=== PATIENT | female | born 1995 | race Asian ===

== ENCOUNTER 2022-06-28 17:20 | Emergency (ER) | payer OTHER ==
[2022-06-28 17:58] LABS: BASOPHILS # (AUTO) 0.1 10^3/uL (0.0-0.1); BASOPHILS % (AUTO) 0.9 %; EOSINOPHILS % (AUTO) 0.6 %; HCT - HEMATOCRIT 37.2 % (37.0-47.0); HGB - HEMOGLOBIN 12.2 g/dL (12.0-16.0); LYMPHOCYTES # (AUTO) 1.5 10^3/uL (1.5-3.5); LYMPHOCYTES % (AUTO) 26.9 %; MEAN CORPUSCULAR HEMOGLOBIN 29.8 pg (27.0-31.0); MEAN CORPUSCULAR HGB CONC 32.8 g/dL (32.0-36.0); MEAN PLATELET VOLUME 9.9 fL (7.9-10.8); MONOCYTES # (AUTO) 0.3 10^3/uL (0.0-1.0); MONOCYTES % (AUTO) 5.9 %; NEUTROPHILS # (AUTO) 3.5 10^3/uL (1.5-6.6); NEUTROPHILS % (AUTO) 65.5 %; PLT - PLATELET COUNT 241 10^3/uL (130-450); RED BLOOD COUNT 4.09 10^6/uL (4.20-5.40); RED CELL DISTRIBUTION WIDTH 12.1 % (12.0-15.0); WHITE BLOOD COUNT 5.4 x10^3/uL (4.8-10.8)
--- NOTE | 2022-06-28 18:07 | ED Physician Documentation ---
History of Present Illness - Stated complaint Stated Complaint: CHEST PX - Chief complaint Chief Complaint: General - Additonal information Additional information: 27-year-old female was brought to the emergency department with her mom for e valuation of chest pain. She reports that on the left lateral side she has been having some chest pain. Then she began noticing tingling in both her arms and fingers. No cough no feeding fevers. Pain is not exertional. Is not pleuritic. Her mom is worried that she could be having a heart attack. Patient does not smoke. No history of hypertension or diabetes. No family history of sudden or early coronary artery disease or . Patient has not recently traveled. Not on any hormones or control. No unilateral leg swelling. No history of DVT or cancer. No recent surgery or imm obilizations. No recent falls or trauma. She appears remarkably well though anxious Review of Systems Constitutional: denies: Fever Nose: reports: Reviewed and negative Throat: reports: Reviewed and negative Cardiac: reports: Chest pain / pressure. 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 : None HEENT: None Psych: None Musculoskeletal: None Derm: None - Past Surgical History Past Surgical History: No - Present Medications Home Medications: Ambulatory Orders Medication Instructions Recorded Confirmed No Known Home Medications 06/28/22 06/28/22 - Allergies Allergies/Adverse Reactions: Allergies Allergy/AdvReac Type Severity Reaction Status Date / Time No Known Drug Allergies Allergy Verified 06/28/22 17:32 - Social History Does the pt smoke?: No Smoking Status: Never smoker Does the pt drink ETOH?: No Does the pt have substance abuse?: No - Immunizations Immunizations are current?: No - POLST Patient has POLST: No PD ED PE NORMAL - General General: Alert and oriented X 3, No acute distress - HEENT HEENT: PERRL - Neck Neck: Supple, no meningeal sign, No adenopathy - Cardiac Cardiac: RRR, No murmur - Respiratory Respiratory: No respiratory distress, Clear bilaterally - Abdomen Abdomen: Normal bowel sounds, Soft - Derm Derm: Normal color, Warm and dry, No rash - Extremities Extremities: No deformity - Neuro Neuro: Alert and oriented X 3, religious educator 2-12 intact Eye Opening: Spontaneous Motor: Obeys Commands Verbal: Oriented GCS Score: 15 Results - Vitals Vitals: Vital Signs - 24 hr 06/28/22 17:22 Temperature 36.9 C Heart Rate 85 Respiratory 16 Rate Blood Pressure 142/82 H O2 Saturation 99 Oxygen O2 Source Room air - EKG (time done) 1726 EKG releavant findings:: EKG personally interpreted by author of this note. Relevant findings are: Rate: Rate (enter#) (85) Rhythm: NSR [place]: Normal Intervals: Normal [place] QRS: Normal Other comments: Other comments (rsr' v1v2) Compare to prior EKG: Old EKG unavailable Computer interpretation: Agree with computer - Labs Labs: Laboratory Tests 06/28/22 06/28/22 06/28/22 17:50 17:50 17:50 WBC 5.4 RBC 4.09 L Hgb 12.2 Hct 37.2 MCV 91.0 MCH 29.8 MCHC 32.8 RDW 12.1 Plt Count 241 MPV 9.9 Neut # (Auto) 3.5 Lymph # (Auto) 1.5 [place] # (Auto) 0.3 Eos # (Auto) 0.0 Baso # (Auto) 0.1 Absolute Nucleated RBC 0.00 Nucleated RBC % 0.0 Sodium 139 Potassium 3.3 L Chloride 104 Carbon Dioxide 25 Anion Gap 10.0 BUN 8 Creatinine 0.6 Estimated GFR (MDRD) 119 Glucose 103 H Calcium 8.9 Total Bilirubin 0.9 AST 18 ALT 11 Alkaline Phosphatase 34 L Troponin I High Sens < 2.3 L Total Protein 7.2 Albumin 4.2 Globulin 3.0 Albumin/Globulin Ratio 1.4 Lipase 39 - Rads (name of study) cxr Relevant Findings:: EMP independent interpretation of test (No acute cardi opulmonary process) PD Medical Decision Making - ED course Complexity details: reviewed results, considered differential, d/w patient, d/w family ED course: Very well-appearing 27-year-old female presents emergency department for evaluation of left-sided chest pain that she began noticing today. She denies that it hurt with a deep breath and it was not exertional. No cough or fevers. Shortly after developing the chest pain she began to feel some tingling in both her extremities. She also states that several days ago she strained her neck and the neck has been bothering her though she is taken nothing for it. On presentation the emergency department she appears rather well and in no distress. Her vital signs are without worrisome abnormality or fever. A chest x-ray was completed and showed no signs of pneumonia, pneumothorax, pleural effusion or cardiomegaly. An EKG is interpreted by myself was sinus without any ischemic findings. No findings suggest pericarditis. I did obtain a CBC electrolytes and troponin which were all essentially negative. By PERC criteria patient is considered low risk for PE. Therefore deferred a D- dimer or other study for this. I discussed with the patient and her mom that she has no risk factors for. Often the chest pain that is accompanied by ting ling can be a sign of anxiety. I encouraged them to discuss this ED visit with her primary providers. She is discharged home in stable condition with usual emergent return precautions for worsening symptoms discussed Departure - Departure Disposition: 01 Home, Self Care Clinical Impression: Chest pain Qualifiers: Chest pain type: unspecified Qualified Code(s): R07.9 - Chest pain, unspecified Neck muscle strain Qualifiers: Encounter type: initial encounter Qualified Code(s): S16.1XXA - Strain of muscle, fascia and tendon at neck level, initial encounter Condition: Stable Record reviewed to determine appropriate education?: Yes Instructions: ED Chest Pain Atypical Unkn Cause Comments: Malgorzata, You came to the emergency department today because you began having some pain on the left side of your chest. You also noticed tingling in both your arms as well as some pain in your neck when moving it. As discussed at the bedside your chest x-ray was entirely normal without showing any findings of a punctured lung, pneumonia, heart enlargement or fluid overlying the lungs. Your labs including a CBC and electrolytes were also without any worrisome abnormalities. Your EKG was normal for age. As discussed at the bedside I say with confidence that you are not having a heart attack. Your history and exam is not consistent with a blood clot or pulmonary embolism. Often when people have pain in the chest and also report tingling in their extremities this can be seen during anxiety. In general I want you to stay well-hydrated and get plenty of rest. You can take ibuprofen or Tylenol [id number] for your neck strain. I would except Your symptoms to be improving over the next several days. Return to the ER if you develop any fevers, have sudden difficulty breathing or any fainting episodes
[2022-06-28 18:12] LABS: ALBUMIN 4.2 g/dL (3.2-5.5); ALBUMIN/GLOBULIN RATIO 1.4 (1.0-2.2); BILIRUBIN,TOTAL 0.9 mg/dL (0.2-1.0); CALCIUM 8.9 mg/dL (8.5-10.3); CREATININE 0.6 mg/dL (0.4-1.0); POTASSIUM 3.3 mmol/L (3.5-5.0); TOTAL PROTEIN 7.2 g/dL (6.7-8.2)
--- NOTE | 2022-06-28 18:12 | XRAY Report ---
PROCEDURE: Chest 1 View X-Ray INDICATIONS: chest pain TECHNIQUE: One view of the chest was acquired. COMPARISON: None. FINDINGS: Surgical changes and devices: None. Lungs and pleura: No pleural effusions or pneumothorax. Lungs are clear. Mediastinum: Mediastinal contours appear normal. Heart size is normal. Bones and chest wall: No suspicious bony lesions. Overlying soft tissues appear unremarkable. IMPRESSION: No acute cardiopulmonary process. Reviewed by: Cee Woodard MD on 06/28/2022 6:11 PM PDT Approved by: Cee Woodard MD on 06/28/2022 6:11 PM PDT Station ID: [id number]
[2022-06-28 18:41] VITALS: BP 110/77
== END 2022-06-28 18:50 | disposition home or self-care (01) ==
LOC: ED 17:20
DX: R07.9 Chest pain, unspecified (principal); S16.1XXA Strain of muscle, fascia and tendon at neck level, initial encounter; X58.XXXA Exposure to other specified factors, initial encounter
CPT/HCPCS: 36415; 80053; 83690; 84484; 85025; 93005; 99283; 99284

== ENCOUNTER 2022-10-10 21:24 | Observation (INO) | payer OTHER ==
[2022-10-10 22:26] LABS: BASOPHILS % (AUTO) 0.5 %; EOSINOPHILS # (AUTO) 0.1 10^3/uL (0.0-0.7); EOSINOPHILS % (AUTO) 0.6 %; HCT - HEMATOCRIT 34.8 % (37.0-47.0); HGB - HEMOGLOBIN 11.5 g/dL (12.0-16.0); LYMPHOCYTES # (AUTO) 1.8 10^3/uL (1.5-3.5); LYMPHOCYTES % (AUTO) 23.4 %; MEAN CORPUSCULAR HEMOGLOBIN 29.8 pg (27.0-31.0); MEAN CORPUSCULAR VOLUME 90.2 fL (81.0-99.0); MEAN PLATELET VOLUME 9.7 fL (7.9-10.8); MONOCYTES # (AUTO) 0.4 10^3/uL (0.0-1.0); MONOCYTES % (AUTO) 5.3 %; NEUTROPHILS # (AUTO) 5.4 10^3/uL (1.5-6.6); NEUTROPHILS % (AUTO) 69.9 %; PLT - PLATELET COUNT 284 10^3/uL (130-450); RED BLOOD COUNT 3.86 10^6/uL (4.20-5.40); WHITE BLOOD COUNT 7.7 x10^3/uL (4.8-10.8)
[2022-10-10 22:37] LABS: ALBUMIN 4.6 g/dL (3.2-5.5); ALBUMIN/GLOBULIN RATIO 1.9 (1.0-2.2); BILIRUBIN,TOTAL 1.1 mg/dL (0.2-1.0); CALCIUM 8.7 mg/dL (8.5-10.3); CREATININE 0.6 mg/dL (0.4-1.0); POTASSIUM 3.2 mmol/L (3.5-5.0)
--- NOTE | 2022-10-10 23:19 | ED Physician Documentation ---
PD HPI FEMALE - Stated complaint Stated Complaint: - Chief complaint Chief Complaint: Abd Pain - History obtained from History obtained from: Patient - Additional information Additional information: HPI from patient. Patient c/o vaginal bleeding, suprapubic cramping since earlier today. LMP 09/06/22. Took home tests with (+) result (two days ago and again yesterday). This is her first . Denies fever, chest pain, shortness of breath. Review of Systems Constitutional: reports: Reviewed and negative Cardiac: reports: Reviewed and negative Respiratory: reports: Reviewed and negative GI: denies: Abdominal Pain (pelvic pain, but not abdominal pain per se), Nausea, Vomiting : reports: LMP (09/06/22), Now EGA. 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 : None HEENT: None Psych: None Musculoskeletal: None Derm: None - Past Surgical History Past Surgical History: No - Present Medications Home Medications: Ambulatory Orders Medication Instructions Recorded Confirmed No Known Home Medications 06/28/22 06/28/22 - Allergies Allergies/Adverse Reactions: Allergies Allergy/AdvReac Type Severity Reaction Status Date / Time No Known Drug Allergies Allergy Verified 10/10/22 21:29 - Social History Does the pt smoke?: No Smoking Status: Never smoker Does the pt drink ETOH?: No Does the pt have substance abuse?: No - Immunizations Immunizations are current?: No - POLST Patient has POLST: No PD ED PE NORMAL - Vitals Vital signs reviewed: Yes - General General: Alert and oriented X 3, No acute distress, Well developed/nourished - Cardiac Cardiac: RRR, No murmur - Respiratory Respiratory: No respiratory distress, Clear bilaterally - Abdomen Abdomen: Normal bowel sounds, Soft, Non tender, Non distended - Back Back: No CVA TTP - Derm Derm: Normal color Results - Vitals Vitals: Vital Signs - 24 hr 10/10/22 10/10/22 10/11/22 21:29 23:00 01:00 Temperature 36.5 C Heart Rate 100 85 89 Respiratory 16 16 16 Rate Blood Pressure 140/88 H 119/85 H 111/69 O2 Saturation 98 100 100 Oxygen O2 Source Room air - Labs Labs: Laboratory Tests 10/10/22 10/10/22 10/10/22 22:22 22:22 22:22 WBC 7.7 RBC 3.86 L Hgb 11.5 L Hct 34.8 L MCV 90.2 MCH 29.8 MCHC 33.0 RDW 12.0 Plt Count 284 MPV 9.7 Neut # (Auto) 5.4 Lymph # (Auto) 1.8 [place] # (Auto) 0.4 Eos # (Auto) 0.1 Baso # (Auto) 0.0 Absolute Nucleated RBC 0.00 Nucleated RBC % 0.0 Sodium 134 L Potassium 3.2 L Chloride 103 Carbon Dioxide 22 Anion Gap 9.0 BUN 9 Creatinine 0.6 Estimated GFR (MDRD) 119 Glucose 107 H Calcium 8.7 Total Bilirubin 1.1 H AST 17 ALT 11 Alkaline Phosphatase 30 L Total Protein 7.0 Albumin 4.6 Globulin 2.4 Albumin/Globulin Ratio 1.9 Lipase 38 Beta HCG, Quant 606.7 Urine Color Urine Clarity Urine pH Ur Specific [place] Urine Protein Urine Glucose (UA) Urine Ketones Urine Occult Blood Urine Nitrite Urine Bilirubin Urine Urobilinogen Ur Leukocyte Esterase Urine RBC Urine WBC Ur Squamous Epith Cells Urine Bacteria Urine Mucus Ur Microscopic Review Urine Culture Comments 10/11/22 00:01 WBC RBC Hgb Hct MCV MCH MCHC RDW Plt Count MPV Neut # (Auto) Lymph # (Auto) [place] # (Auto) Eos # (Auto) Baso # (Auto) Absolute Nucleated RBC Nucleated RBC % Sodium Potassium Chloride Carbon Dioxide Anion Gap BUN Creatinine Estimated GFR (MDRD) Glucose Calcium Total Bilirubin AST ALT Alkaline Phosphatase Total Protein Albumin Globulin Albumin/Globulin Ratio Lipase Beta HCG, Quant Urine Color YELLOW Urine Clarity CLEAR Urine pH 6.0 Ur Specific [place] 1.015 Urine Protein NEGATIVE Urine Glucose (UA) NEGATIVE Urine Ketones 40 H Urine Occult Blood LARGE H Urine Nitrite NEGATIVE Urine Bilirubin NEGATIVE Urine Urobilinogen 0.2 (NORMAL) Ur Leukocyte Esterase NEGATIVE Urine RBC TNTC H Urine WBC 0-3 Ur Squamous Epith Cells FEW Squamous Urine Bacteria Few Urine Mucus Few Strands Ur Microscopic Review INDICATED Urine Culture Comments NOT INDICATED - Rads (name of study) pelvic US Relevant Findings:: Prelim report reviewed, See rad report PD Medical Decision Making - ED course Complexity details: reviewed results, re-evaluated patient, considered differential, d/w patient ED course: No concerning findings on CBC (mildly low hgb, 11.5), minimal hyponatremia (134), mild hypokalemia (3.2). HCQ quantitative is 606. Pelvic US findings are concerning, with trace, complex fluid within endometrium, and large amount of complex free fluid in pelvis. Radiologist's interpretation is " unknown location" with ectopic within differential diagnosis. Patient is in NAD on initial evaluation as well as on reevaluation. Results d/w patient including the US and lack of clarity as to what the US findings represent. D/W Dr. Callahan (on-call magnetic doctor), she will come to ED to evaluate patient and look at the US images. She subsequently admits patient to [facility] for observation. Departure - Departure Disposition: ED Place in Observation Clinical Impression: Vaginal bleeding in Condition: Stable Discharge Date/Time: 10/11/22 03:50
[2022-10-11 00:12] LABS: BILIRUBIN,URINE NEGATIVE (NEGATIVE); GLUCOSE, URINE (UA) NEGATIVE (NEGATIVE); KETONES,URINE (UA) 40 mg/dL (NEGATIVE); LEUKOCYTE ESTERASE, URINE NEGATIVE (NEGATIVE); NITRITE,URINE NEGATIVE (NEGATIVE); OCCULT BLOOD,URINE LARGE (NEGATIVE); PROTEIN,URINE NEGATIVE (NEGATIVE); UROBILINOGEN,URINE 0.2 (NORMAL) E.U./dL (NORMAL)
[2022-10-11 00:15] LABS: CLARITY,URINE CLEAR (CLEAR)
[2022-10-11 00:27] LABS: BACTERIA,URINE Few /HPF (None Seen); MUCUS,URINE Few Strands; RBC,URINE TNTC /HPF (0-5); SQUAMOUS EPITHELIAL CELL,UR FEW Squamous (<= Few); WBC,URINE 0-3 /HPF (0-5)
--- NOTE | 2022-10-11 00:51 | Ultrasound Report ---
PROCEDURE: OB First Trimester INDICATIONS: vaginal bleeding first trimester OUTSIDE/PRIOR DATING DATA: Last menstrual period (LMP): 09/06/2022. LMP-based estimated date of delivery (BRITNEY): 06/12/2022. First dating scan (date and location): Today's exam. Estimated date of delivery (BRITNEY) from first dating scan: Not applicable. TECHNIQUE: Real-time scanning was performed of the fetus and maternal pelvic organs, with image documentation. COMPARISON: None FINDINGS: No intrauterine gestational sac present. The uterus contains complex free fluid, possibly representing a gestational sac. This measures 1.8 x 0.8 x 1.8 cm. Maternal organs: Ovaries appear within normal limits. No adnexal mass. There is a large amount of mi ldly complex free fluid in the pelvis. IMPRESSION: of unknown location, with differential including early gestational , noah lure, ectopic . Trace complex free fluid in the endometrium, which may represent a pseudogestational sac. Additionall y, there is a large amount of free fluid in the pelvis, with some degree of complexity. These two fin dings are commonly seen with ectopic pregnancies. Above discussed with Aydin Gan MD at the time of dictation. Reviewed by: Rigoberto Corrigan on 10/11/2022 12:49 AM PDT Approved by: Rigoberto Corrigan on 10/11/2022 12:49 AM PDT Station ID: [id number]
[2022-10-11] MEDS ORDERED: ONDANSETRON ODT 4 MG TABLET TL PRN (03:09)
--- NOTE | 2022-10-11 03:20 | HISTORY & PHYSICAL EXAMINATION ---
Chief Complaint - Chief Complaint Chief Complaint: Vaginal bleeding and cramping History of Present Illness - History Obtained From History obtained from: Patient - History of Present Illness HPI Comment/Other: Patient is a 27-year-old G1, P0 with an LMP of 09/06/2022 who presents with light vaginal bleeding and cramping that started yesterday. Patient had a recent positive test at home. Patient reported some chills at home, but no fever. She otherwise feels well and has no complaints. 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 - Substance History Use: Uses substance without health or social issues: NONE (OB: First TACKING STITCH REMOVER: Denies history of sexually transmitted infections Surgical history: None) - POLST Patient has POLST: No Meds/Allgy - Home Medications Home Medications: Ambulatory Orders Medication Instructions Recorded Confirmed No Known Home Medications 06/28/22 06/28/22 - Allergies Allergies/Adverse Reactions: Allergies Allergy/AdvReac Type Severity Reaction Status Date / Time No Known Drug Allergies Allergy Verified 10/10/22 21:29 Review of Systems - Cardiovascular Cariovascular: denies: Chest pain - Respiratory Respiratory: denies: SOB at rest - Genitourinary Genitourinary: reports: Other (small amount of vaginal bleeding, has not been soaking through pads. Mild cramping) - All Other Systems All Other Systems: reports: Reviewed and negative Exam - Vital Signs Reviewed Vital Signs: Yes Vital Signs: Vital Signs x48h Temp Pulse Resp BP Pulse Ox 10/11/22 01:00 89 16 111/69 100 10/10/22 23:00 85 16 119/85 H 100 10/10/22 21:29 97.7 F 100 16 140/88 H 98 - Physical Exam General Appearance: positive: No acute distress Abdomen: positive: Non-tender. negative: Guarding, Rebound Comments/Other: pelvic exam: Small amount of blood in vaginal vault with small amount of bleeding from cervical os. Patient is nontender with bimanual exam. Conclusion/Plan - Problem List (1) Vaginal bleeding in Conclusion/Plan: 1. of unknown location -Quantitative hC -Ultrasound is significant for "trace complex free fluid in the endometrium. "Additionally on ultrasound there is a large amount of free fluid in the pelvis. Patient's examination is benign, however given amount of free fluid in pelvis will admit for serial abdominal pelvic examination and repeat quantitative hCG. Discussed with patient of unknown location at this time with possibility of ectopic versus early miscarriage With recommendation of expected management at this time.Risk, benefits, and alternatives discussed with patient, ultrasound findings reviewed with patient and significant other, and all questions answered. - Lab Results Fish Bones: 10/10/22 22:22 10/10/22 22:22
[2022-10-11] MEDS: ACETAMINOPHEN 500 MG TABLET PO SCH ×2 (03:55→11:16)
[2022-10-11 11:01] VITALS: O2SAT 99
[2022-10-11 12:01] LABS: BASOPHILS % (AUTO) 0.6 %; EOSINOPHILS % (AUTO) 0.4 %; HCT - HEMATOCRIT 31.5 % (37.0-47.0); HGB - HEMOGLOBIN 10.6 g/dL (12.0-16.0); LYMPHOCYTES # (AUTO) 1.6 10^3/uL (1.5-3.5); LYMPHOCYTES % (AUTO) 30.9 %; MEAN CORPUSCULAR HGB CONC 33.7 g/dL (32.0-36.0); MEAN CORPUSCULAR VOLUME 89.2 fL (81.0-99.0); MEAN PLATELET VOLUME 9.7 fL (7.9-10.8); MONOCYTES # (AUTO) 0.4 10^3/uL (0.0-1.0); MONOCYTES % (AUTO) 8.4 %; NEUTROPHILS # (AUTO) 3.1 10^3/uL (1.5-6.6); NEUTROPHILS % (AUTO) 59.5 %; PLT - PLATELET COUNT 257 10^3/uL (130-450); RED BLOOD COUNT 3.53 10^6/uL (4.20-5.40); RED CELL DISTRIBUTION WIDTH 11.9 % (12.0-15.0); WHITE BLOOD COUNT 5.2 x10^3/uL (4.8-10.8)
[2022-10-11 12:25] VITALS: BP 100/56
--- NOTE | 2022-10-11 13:37 | DISCHARGE SUMMARY ---
Discharge Summary Admit Date: 10/10/22 Discharge Date: 10/11/22 Discharging Provider: Zander Shanks MD Code Status: Attempt Resuscitation Condition at Discharge: Stable Discharge Disposition: 01 Home, Self Care - DIAGNOSES Admission Diagnoses: Vaginal bleeding Suprapubic pain Discharge Diagnoses with Status of Each Condition: Vaginal bleeding: Improved Suprapubic pain: Stable - HPI History of Present Illness: No acute events overnight. Able to ambulate to bathroom without dizziness. Some left lower quadrant cramping, but pain 3/10. Had been declining Tylenol this morning, but did have a dose recently. Minimal vaginal bleeding. Physical exam: Constitutional: alert, oriented, no acute distress Cardiovascular: Regular rate and rhythm. No murmurs, rubs, gallops. Respiratory: No respiratory distress. Clear to auscultation bilaterally. Abdomen: Soft, pelvic pain not producible on exam Psych: affect and mood appropriate, normal interaction, good eye contact. - HOSPITAL COURSE Hospital Course: Patient is a 27-year-old G1, P0 at approximately 6 weeks gestation by LMP who presented with vaginal bleeding and suprapubic pain. She was admitted for observation after having fluid in the pelvis and a positive HCG, but this was felt to be a miscarriage rather than en ectopic due to her benign exam. She was observed overnight and remained vitally stable. Serial abdominal exams were benign. She did have a mild drop in her hemoglobin, but remained asymptomatic in regards to hypovolemia. If this were an acute bleed, she would have had a worsening fall. While we are unsure of the etiology of the fluid, this could be a ruptured/hemorrhagic cyst, resolving ectopic, or other source of fluid. She also had a decrease in HCG rather quickly. Abdominal exam remained benign at time of discharge. She wanted to avoid surgery and as she was stable, we discussed returning home with close follow up. She will get repeat labs tomorrow and establish in the outpatient clinic. If she has a repeat fall in hemoglobin, she will return to the hospital. We also discussed the risks of ectopic pregnancies, and if she has an increase in pain, develops dizziness or weakness, she should also return. Emphasized to her and her partner the risks of ectopic rupture and they should have a low threshold for return as it could be life threatening and would likely need emergent surgery. All questions were answered and were discharged in stable condition. - ALLERGIES Allergies/Adverse Reactions: Allergies Allergy/AdvReac Type Severity Reaction Status Date / Time No Known Drug Allergies Allergy Verified 10/10/22 21:29 - MEDICATIONS Home Medications: Ambulatory Orders Medication Instructions Recorded Confirmed No Known Home Medications 06/28/22 06/28/22 - LABS Result Diagrams: 10/11/22 11:52 10/10/22 22:22 - FOLLOW UP Follow Up: With outpatient ObGyn in 1-4 days. Welcome to establish with me in clinic or with another provider in the area. - TIME SPENT Time Spent in Discharge (Minutes): 40
--- NOTE | 2022-10-11 13:45 | Discharge Plan ---
Discharge Plan Problem Reviewed?: Yes Disposition: Home, Self Care Condition: Stable Diet: Regular Activity Restrictions: Light activity Shower Restrictions: No Driving Restrictions: No Instruction Topics: ED Abdominal Pain Rule Out Ectopic No Smoking: If you smoke, Please STOP! Call for help.
== END 2022-10-11 13:54 | disposition home or self-care (01) ==
LOC: ED 21:24 → MS2 10-11 03:13
PROVIDERS: ADMIT Obstetrics & Gynecology Obstetrics; ATTEND Obstetrics & Gynecology
DX: O20.9 Hemorrhage in early pregnancy, unspecified (principal); Z3A.01 Less than 8 weeks gestation of pregnancy; R10.2 Pelvic and perineal pain; E86.1 Hypovolemia; R10.32 Left lower quadrant pain
CPT/HCPCS: 36415; 76801; 80053; 81001; 83690; 84702; 85025; 99284; 99285; A9270; G0378; 81003; 81025; 87086

== ENCOUNTER 2022-10-12 11:34 | Outpatient (CLI) | payer OTHER ==
[2022-10-12 12:01] LABS: HCT - HEMATOCRIT 32.8 % (37.0-47.0); HGB - HEMOGLOBIN 10.8 g/dL (12.0-16.0); MEAN CORPUSCULAR HEMOGLOBIN 29.8 pg (27.0-31.0); MEAN CORPUSCULAR HGB CONC 32.9 g/dL (32.0-36.0); MEAN CORPUSCULAR VOLUME 90.4 fL (81.0-99.0); MEAN PLATELET VOLUME 9.8 fL (7.9-10.8); RED BLOOD COUNT 3.63 10^6/uL (4.20-5.40); WHITE BLOOD COUNT 4.9 x10^3/uL (4.8-10.8)
== END 2022-10-12 11:35 | disposition home or self-care (01) ==
LOC: LAB 11:34
PROVIDERS: ATTEND Obstetrics & Gynecology
DX: R10.9 Unspecified abdominal pain (principal)
CPT/HCPCS: 36415; 84702; 85027

== ENCOUNTER 2022-10-14 11:40 | Outpatient (CLI) | payer OTHER ==
[2022-10-14 12:00] LABS: HCT - HEMATOCRIT 30.6 % (37.0-47.0); HGB - HEMOGLOBIN 10.1 g/dL (12.0-16.0); MEAN CORPUSCULAR HEMOGLOBIN 29.9 pg (27.0-31.0); MEAN CORPUSCULAR VOLUME 90.5 fL (81.0-99.0); MEAN PLATELET VOLUME 9.9 fL (7.9-10.8); RED BLOOD COUNT 3.38 10^6/uL (4.20-5.40); WHITE BLOOD COUNT 3.6 x10^3/uL (4.8-10.8)
== END 2022-10-14 11:41 | disposition home or self-care (01) ==
LOC: LAB 11:40
PROVIDERS: ATTEND Obstetrics & Gynecology
DX: O20.0 Threatened abortion (principal); R10.9 Unspecified abdominal pain
CPT/HCPCS: 36415; 84702; 85027; 86850; 86900; 86901

== ENCOUNTER 2022-10-16 11:31 | Outpatient (CLI) | payer OTHER ==
[2022-10-16 11:46] LABS: HCT - HEMATOCRIT 29.6 % (37.0-47.0); HGB - HEMOGLOBIN 9.8 g/dL (12.0-16.0); MEAN CORPUSCULAR HGB CONC 33.1 g/dL (32.0-36.0); MEAN CORPUSCULAR VOLUME 90.5 fL (81.0-99.0); MEAN PLATELET VOLUME 9.1 fL (7.9-10.8); RED BLOOD COUNT 3.27 10^6/uL (4.20-5.40); WHITE BLOOD COUNT 3.2 x10^3/uL (4.8-10.8)
== END 2022-10-16 11:32 | disposition home or self-care (01) ==
LOC: LAB 11:31
PROVIDERS: ATTEND Obstetrics & Gynecology
DX: O20.0 Threatened abortion (principal); R10.9 Unspecified abdominal pain
CPT/HCPCS: 36415; 84702; 85027

== ENCOUNTER 2022-10-17 21:42 | Outpatient (CLI) | payer OTHER ==
--- NOTE | 2022-10-17 23:33 | Ultrasound Report ---
PROCEDURE: OB First Trimester w/TV INDICATIONS: ABD PAIN OUTSIDE/PRIOR DATING DATA: Last menstrual period (LMP): 09/06/2022. LMP-based estimated date of delivery (BRITNEY): 06/13/2023. First dating scan (date and location): 10/10/2022. TECHNIQUE: Real-time scanning was performed of the fetus and maternal pelvic organs, with image documentation. Endovaginal scanning was also performed to better visualize the fetus and maternal ovaries. COMPARISON: 10/10/2022. FINDINGS: Uterus: Heterogeneous thickened endometrium measuring up to approximately 1.6 cm redemonstrated. No intrauterine gestational sac identified. Ovaries: Right ovary not well visualized. Left ovary measures approximately 2.9 x 2.3 x 2.7 cm. A th ick-walled hypoechoic structure in the left ovary measuring up to 1.5 x 1.7 x 1.4 cm is suggestive of a corpus luteal cyst. There is patent vascularity within the left ovary. Miscellaneous: A large amount of complex free fluid is redemonstrated within the pelvis consistent wi th hemoperitoneum. Heterogeneous ill-defined mass is also redemonstrated within the left adnexa. IMPRESSION: 1. No intrauterine identified. Heterogeneous thickening of the endometrium again noted. 2. Heterogeneous left adnexal mass with large amount of complex free fluid consistent with hemoperito neum redemonstrated. The findings are again suggestive of a ruptured ectopic . Reviewed by: Priyank Dash MD on 10/17/2022 11:32 PM PDT Approved by: Priyank Dash MD on 10/17/2022 11:32 PM PDT Station ID: [id number]
== END 2022-10-17 21:43 | disposition home or self-care (01) ==
LOC: DI 21:42
PROVIDERS: ATTEND Obstetrics & Gynecology
DX: R19.09 Other intra-abdominal and pelvic swelling, mass and lump (principal)

== ENCOUNTER 2022-10-18 11:30 | Outpatient (CLI) | payer OTHER ==
[2022-10-18 11:43] LABS: HCT - HEMATOCRIT 30.9 % (37.0-47.0); MEAN CORPUSCULAR HEMOGLOBIN 29.4 pg (27.0-31.0); MEAN CORPUSCULAR HGB CONC 32.4 g/dL (32.0-36.0); MEAN CORPUSCULAR VOLUME 90.9 fL (81.0-99.0); MEAN PLATELET VOLUME 9.2 fL (7.9-10.8); RED BLOOD COUNT 3.4 10^6/uL (4.20-5.40); RED CELL DISTRIBUTION WIDTH 12.4 % (12.0-15.0); WHITE BLOOD COUNT 3.6 x10^3/uL (4.8-10.8)
== END 2022-10-18 11:31 | disposition home or self-care (01) ==
LOC: LAB 11:30
PROVIDERS: ATTEND Obstetrics & Gynecology
DX: O00.80 Other ectopic pregnancy without intrauterine pregnancy (principal)
CPT/HCPCS: 36415; 84702; 85027

== ENCOUNTER 2022-10-23 14:06 | Outpatient (CLI) | payer OTHER | END 2022-10-23 14:07 | disposition home or self-care (01) | LOC: LAB 14:06 | PROVIDERS: ATTEND Obstetrics & Gynecology | DX: O00.80 Other ectopic pregnancy without intrauterine pregnancy (principal) | CPT/HCPCS: 36415; 84702 ==

== ENCOUNTER 2022-10-26 13:52 | Outpatient (CLI) | payer OTHER | END 2022-10-26 13:53 | disposition home or self-care (01) | LOC: LAB 13:52 | PROVIDERS: ATTEND Obstetrics & Gynecology | DX: O00.80 Other ectopic pregnancy without intrauterine pregnancy (principal) | CPT/HCPCS: 36415; 84702 ==

== ENCOUNTER 2022-11-15 08:57 | Outpatient (CLI) | payer OTHER | END 2022-11-15 08:58 | disposition home or self-care (01) | LOC: LAB 08:57 | PROVIDERS: ATTEND Obstetrics & Gynecology | DX: O00.80 Other ectopic pregnancy without intrauterine pregnancy (principal) | CPT/HCPCS: 36415; 84702 ==

== ENCOUNTER 2023-01-13 13:17 | Emergency (ER) | payer OTHER ==
[2023-01-13 14:05] LABS: BASOPHILS # (AUTO) 0.1 10^3/uL (0.0-0.1); EOSINOPHILS # (AUTO) 0.1 10^3/uL (0.0-0.7); HCT - HEMATOCRIT 40.9 % (37.0-47.0); LYMPHOCYTES # (AUTO) 1.7 10^3/uL (1.5-3.5); LYMPHOCYTES % (AUTO) 34.3 %; MEAN CORPUSCULAR HEMOGLOBIN 29.1 pg (27.0-31.0); MEAN CORPUSCULAR HGB CONC 31.8 g/dL (32.0-36.0); MEAN CORPUSCULAR VOLUME 91.7 fL (81.0-99.0); MEAN PLATELET VOLUME 9.8 fL (7.9-10.8); MONOCYTES # (AUTO) 0.4 10^3/uL (0.0-1.0); MONOCYTES % (AUTO) 7.6 %; NEUTROPHILS # (AUTO) 2.7 10^3/uL (1.5-6.6); NEUTROPHILS % (AUTO) 55.9 %; PLT - PLATELET COUNT 338 10^3/uL (130-450); RED BLOOD COUNT 4.46 10^6/uL (4.20-5.40); RED CELL DISTRIBUTION WIDTH 12.2 % (12.0-15.0); WHITE BLOOD COUNT 4.8 x10^3/uL (4.8-10.8)
[2023-01-13 14:19] LABS: ALBUMIN 4.9 g/dL (3.2-5.5); BILIRUBIN,TOTAL 0.8 mg/dL (0.2-1.0); CALCIUM 10.3 mg/dL (8.5-10.3); CREATININE 0.8 mg/dL (0.6-1.3); POTASSIUM 4.1 mmol/L (3.5-4.5); TOTAL PROTEIN 7.3 g/dL (6.4-8.9)
[2023-01-13 16:11] LABS: BILIRUBIN,URINE NEGATIVE (NEGATIVE); GLUCOSE, URINE (UA) NEGATIVE (NEGATIVE); KETONES,URINE (UA) NEGATIVE (NEGATIVE); LEUKOCYTE ESTERASE, URINE NEGATIVE (NEGATIVE); NITRITE,URINE NEGATIVE (NEGATIVE); OCCULT BLOOD,URINE NEGATIVE (NEGATIVE); PH,URINE 6.5 PH (5.0-7.5); PROTEIN,URINE NEGATIVE (NEGATIVE); UROBILINOGEN,URINE 0.2 (NORMAL) E.U./dL (NORMAL)
[2023-01-13 16:13] LABS: CLARITY,URINE CLEAR (CLEAR); HCG UR QUAL NEGATIVE
--- NOTE | 2023-01-13 16:49 | CT Report ---
PROCEDURE: HEAD WO INDICATIONS: dizziness x 1 week TECHNIQUE: Noncontrast 4.5 mm thick angled axial sections acquired from the foramen magnum to the vertex. For r adiation dose reduction, the following was used: automated exposure control, adjustment of mA and/or kV according to patient size. COMPARISON: None. FINDINGS: Image quality: Excellent. CSF spaces: Basal cisterns are patent. No extra-axial fluid collections. Ventricles are normal in size and shape. Brain: No midline shift. No intracranial masses or hemorrhage. Hernandez-white matter interface is norm al. Skull and face: Calvarium and visualized facial bones are intact, without suspicious lesions. Sinuses: Visualized sinuses and mastoids are clear. IMPRESSION: No acute intracranial pathology. Reviewed by: Rigoberto Corrigan on 01/13/2023 3:48 PM [facility] Approved by: Rigoberto Corrigan on 01/13/2023 3:48 PM [facility] Station ID: [id number]
[2023-01-13] MEDS ORDERED: MECLIZINE 12.5 MG TABLET PO STA (16:56)
[2023-01-13] MEDS ORDERED: AMOX/CLAV 875 MG/125 MG TABLET PO STA (16:56)
--- NOTE | 2023-01-13 16:59 | ED Physician Documentation ---
History of Present Illness - Stated complaint Stated Complaint: NAUSEA/DIZZY - Chief complaint Chief Complaint: Neuro - History obtained from History obtained from: Patient - History of Present Illness Timing: How many weeks ago (1) Pain level max: 0 Pain level now: 0 - Additonal information Additional information: 27 year old female with "dizziness" for the past week. She complains of left sided facial and ear pressure for 1 week. No fevers. No chills. No possibilities of . The room is not spinning. She feels slightly off balance. Has had some nasal congestion and drainage. No headache. No falls. No trauma. No change with bending over. 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 : None HEENT: None Psych: None Musculoskeletal: None Derm: None - Past Surgical History Past Surgical History: No - Present Medications Home Medications: Ambulatory Orders Medication Instructions Recorded Confirmed Amox/Clav 875/125 [Augmentin] 1 tab PO Q12H #20 tablet 01/13/23 Meclizine HCl [Motion Sickness] 25 mg PO Q6H PRN #30 tablet 01/13/23 Pnv No.95/Ferrous Fum/Folic AC 1 each PO DAILY 01/13/23 01/13/23 [ Caplet] - Allergies Allergies/Adverse Reactions: Allergies Allergy/AdvReac Type Severity Reaction Status Date / Time No Known Drug Allergies Allergy Verified 01/13/23 13:32 - Social History Does the pt smoke?: No Smoking Status: Never smoker Does the pt drink ETOH?: No Does the pt have substance abuse?: No - Immunizations Immunizations are current?: No - POLST Patient has POLST: No PD ED PE NORMAL - Vitals Vital signs reviewed: Yes - General General: Alert and oriented X 3, No acute distress - HEENT HEENT: Moist mucous membranes - Neck Neck: Supple, no meningeal sign - Cardiac Cardiac: RRR, Strong equal pulses - Respiratory Respiratory: No respiratory distress, Clear bilaterally - Abdomen Abdomen: Soft, Non tender, Non distended - Derm Derm: Warm and dry, No rash - Extremities Extremities: No edema, No calf tenderness / cord - Neuro Neuro: Alert and oriented X 3, 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 Normal gait. Normal heel walking. Normal toe walking. Normal heel-to-toe walking) Eye Opening: Spontaneous Motor: Obeys Commands Verbal: Oriented GCS Score: 15 - Psych Psych: Normal mood, Normal affect Results - Vitals Vitals: Vital Signs - 24 hr 01/13/23 01/13/23 01/13/23 13:27 16:02 17:28 Temperature 36.4 C L Heart Rate 85 84 86 Respiratory 16 16 16 Rate Blood Pressure 123/82 H 111/80 122/84 H O2 Saturation 96 98 97 Oxygen O2 Source Room air - Labs Labs: Laboratory Tests 01/13/23 01/13/23 01/13/23 13:49 13:49 15:05 WBC 4.8 RBC 4.46 Hgb 13.0 Hct 40.9 MCV 91.7 MCH 29.1 MCHC 31.8 L RDW 12.2 Plt Count 338 MPV 9.8 Neut # (Auto) 2.7 Lymph # (Auto) 1.7 [place] # (Auto) 0.4 Eos # (Auto) 0.1 Baso # (Auto) 0.1 Absolute Nucleated RBC 0.00 Nucleated RBC % 0.0 Sodium 138 Potassium 4.1 Chloride 101 Carbon Dioxide 31 Anion Gap 6.0 BUN 18 Creatinine 0.8 Estimated GFR (MDRD) 85 L Glucose 85 Calcium 10.3 Total Bilirubin 0.8 AST 18 ALT 11 Alkaline Phosphatase 42 Total Protein 7.3 Albumin 4.9 Globulin 2.4 Albumin/Globulin Ratio 2.0 Lipase 28 Urine Color YELLOW Urine Clarity CLEAR Urine pH 6.5 Ur Specific [place] 1.015 Urine Protein NEGATIVE Urine Glucose (UA) NEGATIVE Urine Ketones NEGATIVE Urine Occult Blood NEGATIVE Urine Nitrite NEGATIVE Urine Bilirubin NEGATIVE Urine Urobilinogen 0.2 (NORMAL) Ur Leukocyte Esterase NEGATIVE Ur Microscopic Review NOT INDICATED Urine Culture Comments NOT INDICATED Urine HCG, Qual NEGATIVE - Rads (name of study) head CT Relevant Findings:: Final report received, See rad report PD Medical Decision Making - ED course Complexity details: reviewed results, re-evaluated patient, considered differential, d/w patient Reviewed Lab Results: No acute laboratory abnormalities ED course: Patient with a sensation of dizziness, but not vertiginous. No nystagmus. Steady gait. Normal cerebellar testing. No acute findings on head CT. She is having sinus pressure and nasal congestion, we will try treating her for sinusitis to see if this resolves her symptoms. If not, recommend MRI and close follow-up with her PCP. Patient is ambulating normally here. Not ataxic. No indication for lumbar puncture. No fevers. No neck or back pain. Patient counseled regarding signs and symptoms for which I believe and urgent re- evaluation would be necessary. Patient with good understanding of and agreement to plan and is comfortable going home at this time This document was made in part using voice recognition software. While efforts are made to proofread this document, sound alike and grammatical errors may occur. Departure - Departure Disposition: 01 Home, Self Care Clinical Impression: Dizziness Sinusitis Qualifiers: Sinusitis location: unspecified location Chronicity: unspecified Qualified Code(s): J32.9 - Chronic sinusitis, unspecified Condition: Good Instructions: ED Dizziness UKO, ED Sinusitis Abx Tx Follow-Up: MAT MELTON ARNP [Primary Care Provider] - Within 1 week Prescriptions: Amox/Clav 875/125 [Augmentin] 1 tab PO Q12H #20 tablet Meclizine HCl [Motion Sickness] 25 mg PO Q6H PRN #30 tablet PRN Reason: Dizziness Comments: Your prescriptions were sent to [facility] in [place]. Please follow-up with your doctor for further care. Please return if you worsen. If your symptoms are still present in 1 week, it is recommended that your doctor consider a brain MRI. Your head CT tonight does not show any acute abnormality. Forms: PCP List Discharge Date/Time: 01/13/23 17:28
[2023-01-13 17:34] VITALS: BP 122/84; O2SAT 97
== END 2023-01-13 17:28 | disposition home or self-care (01) ==
LOC: ED 13:17
DX: J32.9 Chronic sinusitis, unspecified (principal)
CPT/HCPCS: 36415; 70450; 80053; 81003; 81025; 83690; 85025; 99284; A9270; 81001; 87086

== ENCOUNTER 2023-08-01 20:52 | Outpatient (CLI) | payer OTHER ==
--- NOTE | 2023-08-02 14:46 | Ultrasound Report ---
PROCEDURE: Pelvic w/Transvaginal INDICATIONS: PELVIC PAIN TECHNIQUE: Real-time scanning was performed of the pelvic organs, with image documentation. Additional endovagi nal scanning was necessary due to incomplete visualization of the adnexal and endometrial structures by transabdominal scanning. COMPARISON: None. FINDINGS: Uterus: Uterus is anteverted and normal in size at 6.13 x 3.4 x 3.7 cm. The myometrium is heterogen eous. The endometrium measures 4.4 mm in combined thickness. No endometrial mass or fluid is seen. Ovaries: The right ovary measures 2.9 x 2.6 x 2.8 cm, with a calculated ovarian volume of 10.9 cc. The left ovary measures 3.4 x 1.4 x 2 cm, with a calculated ovarian volume of 4.9 cc. There is a simp le appearing cyst adjacent to right ovary measures 1.6 x 1.1 x 1.3 cm in size. Less than 12 follicles can be seen in each ovary. No adnexal masses are seen. No cystic lesions measuring greater than 3 c m. Other: No pathologic free abdominal or pelvic fluid. IMPRESSION: 1. Simple appearing right paraovarian cyst measures 1.6 x 1.1 x 1.3 cm in size. No solid appearing ov moni lesion. No adnexal mass. 2. Normal appearing uterus and endometrium. Reviewed by: Maury Allen MD on 08/02/2023 2:45 PM PDT Approved by: Maury Allen MD on 08/02/2023 2:45 PM PDT Station ID: [id number]
== END 2023-08-01 20:53 | disposition home or self-care (01) ==
LOC: DI 20:52
PROVIDERS: ATTEND Obstetrics & Gynecology
DX: N94.89 Other specified conditions associated with female genital organs and menstrual cycle (principal)

== ENCOUNTER 2023-08-23 09:40 | Emergency (ER) | payer OTHER ==
[2023-08-23 10:30] VITALS: BP 107/59; O2SAT 99
--- NOTE | 2023-08-23 11:53 | ED Physician Documentation ---
PD HPI BACK PAIN - Stated complaint Stated Complaint: LOWER BACK PX - Chief complaint Chief Complaint: Back Pain - History obtained from History obtained from: Patient - Additional information Additional information: Yesterday while sneezing she developed sudden severe left low back pain radiating into the left hip. There is no associated weakness, numbness, tingling, saddle anesthesia. No possibility of . She has had similar pains in the same area in the past. No fevers. No IVDU. 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 : None HEENT: None Psych: None Musculoskeletal: None Derm: None - Past Surgical History Past Surgical History: No /WINDOWS SYSTEMS ADMINISTRATOR: Other - Present Medications Home Medications: Ambulatory Orders Medication Instructions Recorded Confirmed Amox/Clav 875/125 [Augmentin] 1 tab PO Q12H #20 tablet 01/13/23 Meclizine HCl [Motion Sickness] 25 mg PO Q6H PRN #30 tablet 01/13/23 Pnv No.95/Ferrous Fum/Folic AC 1 each PO DAILY 01/13/23 01/13/23 [ Caplet] Cyclobenzaprine [Flexeril] 10 mg PO TID PRN #20 tablet 08/23/23 - Allergies Allergies/Adverse Reactions: Allergies Allergy/AdvReac Type Severity Reaction Status Date / Time No Known Drug Allergies Allergy Verified 08/23/23 10:22 - Social History Does the pt smoke?: No Smoking Status: Never smoker Does the pt drink ETOH?: No Does the pt have substance abuse?: No - Immunizations Immunizations are current?: Yes - POLST Patient has POLST: No PD ED PE NORMAL - Vitals Vital signs reviewed: Yes - General General: Alert and oriented X 3, No acute distress - Abdomen Abdomen: Normal bowel sounds, Soft, Non tender - Back Back: Other (No midline spinal tenderness. She is tender in the area of the left sciatic notch and superior to that.) - Extremities Extremities: Other (The patient has equal and normal Achilles and patellar reflexes bilaterally. Normal sensation in all areas of the legs. Patient denies saddle anesthesia. Normal strength in flexion-extension at the ankles, knees, and flexion of the hips.) - Neuro Neuro: Alert and oriented X 3, Normal speech Results - Vitals Vitals: Vital Signs - 24 hr 08/23/23 10:20 Temperature 37.0 C Heart Rate 91 Respiratory 20 Rate Blood Pressure 107/59 L O2 Saturation 99 Oxygen O2 Source Room air PD Medical Decision Making - ED course ED course: This patient has seemingly uncomplicated musculoskeletal back pain. The patient has no "red flags." Specifically denies IV drug use, fevers, incontinence, saddle anesthesia. Spinal epidural abscess was considered, given that the patient has no fever, is not diabetic, has no spinal tenderness, does not use IV drugs, and has no bilateral neurologic symptoms, the diagnosis of spinal epidural abscess is considered exceedingly unlikely. Departure - Departure Disposition: Home, Self Care Clinical Impression: Lumbar strain Qualifiers: Encounter type: initial encounter Qualified Code(s): S39.012A - Strain of muscle, fascia and tendon of lower back, initial encounter Condition: Good Record reviewed to determine appropriate education?: Yes Instructions: ED Sprain Strain Lumbar Prescriptions: Cyclobenzaprine [Flexeril] 10 mg PO TID PRN #20 tablet PRN Reason: Spasms Comments: I sent your prescription electronically to the [facility] in [place]. You are seen today for a back strain after sneezing. You can continue the ibuprofen and Tylenol and Salonpas patches. Do heat and gentle stretching. Follow-up with your doctor in about a week. Return for any new or worsening symptoms.
[2023-08-23] MEDS: CYCLOBENZAPRINE 10 MG TABLET PO STA (11:57)
== END 2023-08-23 12:00 | disposition home or self-care (01) ==
LOC: ED 09:40
DX: S39.012A Strain of muscle, fascia and tendon of lower back, initial encounter (principal); X58.XXXA Exposure to other specified factors, initial encounter; Y93.89 Activity, other specified
CPT/HCPCS: 99283; A9270